=== PATIENT | male | born 1960 | race Caucasian/White ===

== ENCOUNTER 2021-12-25 13:37 | Emergency (ER) | payer MEDICARE ==
[2021-12-25 13:53] VITALS: BP 130/81
[2021-12-25 14:22] LABS: BASO # 0.02 K/mm3 (0.02-0.10); EOS # 0.05 K/mm3 (0.04-0.40); EOS % 0.9 % (0.0-4.0); HEMATOCRIT 43.2 % (42.0-52.0); HEMOGLOBIN 14.7 g/dL (13.5-18.0); LYMPH# 1.33 K/mm3 (1.50-4.00); MEAN CELL VOLUME 88 fl (78-100); MEAN CORPUSCULAR HEMOGLOBIN 30 pg (27-31); MEAN CORPUSCULAR HGB CONC 34 g/dL (33-37); NEU # 3.65 K/mm3 (1.40-6.50); PLATELET COUNT 285 K/mm3 (130-400); RED BLOOD COUNT 4.89 M/mm3 (4.20-5.60); RED CELL DISTRIBUTION WIDTH 12.3 % (11.5-14.5); WHITE BLOOD COUNT 5.6 K/mm3 (4.8-10.8)
[2021-12-25 14:39] LABS: ALBUMIN 4.2 g/dL (3.4-4.8)
[2021-12-25 14:40] LABS: CALCIUM 9.5 mg/dL (8.3-10.5)
[2021-12-25 14:43] LABS: TOTAL BILIRUBIN 1.1 mg/dL (0.2-1.2)
== END 2021-12-25 15:50 | disposition home or self-care (01) ==
LOC: ED 13:37
PROVIDERS: Nurse Practitioner
DX: K59.00 Constipation, unspecified (principal)

== ENCOUNTER 2022-05-06 05:30 | Emergency (ER) | payer OTHER, MEDICARE ==
[~2022-05-06] VITALS: Ht 177.8 cm; Wt 95.4 kg
[2022-05-06 05:33] VITALS: BP 145/84
[2022-05-06 07:03] LABS: PH-URINE 6.5 (5.0 - 8.0); URINE APPEARANCE CLOUDY; URINE COLOR STRAW; URINE WBC 0 /hpf (0-3)
[2022-05-06 07:04] LABS: URINE BILIRUBIN NEGATIVE (NEGATIVE); URINE BLOOD NEGATIVE (NEGATIVE); URINE GLUCOSE NEGATIVE (NEGATIVE); URINE KETONE NEGATIVE (NEGATIVE); URINE LEUKOCYTE ESTERASE NEGATIVE (NEGATIVE); URINE NITRATE NEGATIVE (NEGATIVE); URINE PROTEIN(semi-quant) NEGATIVE (NEGATIVE); URINE UROBILINOGEN NORMAL (NORMAL)
== END 2022-05-06 08:45 | disposition home or self-care (01) ==
LOC: ED 05:30
PROVIDERS: Family Medicine
DX: S06.0X0A Concussion without loss of consciousness, initial encounter (principal); M54.50 Low back pain, unspecified; Z28.310 Unvaccinated for COVID-19; V89.2XXA Person injured in unspecified motor-vehicle accident, traffic, initial encounter